=== PATIENT | female | born 1970 | race African-American/Black ===

== ENCOUNTER 2020-09-01 12:59 | Emergency (ER) | payer OTHER ==
[~2020-09-01] VITALS: Ht 160 cm; Wt 62.6 kg
[~2020-09-01 12:59] MED LIST: AMLODIPINE BESY10 MG PO; NORCO 5-325 TA1 EACH PO
[2020-09-01 13:00] VITALS: BP 144/68
[2020-09-01] MEDS ORDERED: CYCLOBENZAPRINE5 MG PO (13:35)
[2020-09-01] MEDS ORDERED: NORCO 5-325 TA1 EAC2 PO (13:35)
== END 2020-09-01 13:42 | disposition home or self-care (01) ==
LOC: ER 12:59
DX: M62.830 Muscle spasm of back (principal); M54.6 Pain in thoracic spine; I10 Essential (primary) hypertension; Z79.899 Other long term (current) drug therapy